=== PATIENT | male | born 1935 | race Hispanic/Latino ===

== ENCOUNTER 2018-08-22 14:07 | Inpatient (IN) | payer OTHER ==
[~2018-08-22] VITALS: Ht 170.2 cm; Wt 66.2 kg
[2018-08-22 15:09] LABS: BASOPHILS % (AUTO) 0.6 % (0.0-5.0); HEMATOCRIT 45.8 % (42-54); LYMPHOCYTES % (AUTO) 8.9 % (21.0-51.0); NEUTROPHILS % (AUTO) 83.5 % (40.0-77.0); NUCLEATED RED BLOOD CELLS 0.2 % (0.0-0.19); PLATELET COUNT (AUTO) 166 K/uL (130-400); RED BLOOD CELL COUNT(AUTO) 4.58 MIL/uL (4.50-6.20); RED CELL DISTRIBUTION WIDTH 16.4 % (11.0-15.5); WHITE BLOOD COUNT (AUTO) 7.2 K/uL (4.8-10.8)
[2018-08-22] MEDS ORDERED: ASPIRIN 325 MG TABLET ONE (15:09)
[2018-08-22 15:21] LABS: INR 1.16 (0.85-1.15); PARTIAL THROMBOPLASTIN TIME 27.1 SEC (26.3-35.5); PROTHROMBIN TIME 12.1 SEC (9.6-11.6)
[2018-08-22 15:22] LABS: CREATININE 1.8 mg/dL (0.5-1.5); POTASSIUM 4.7 mmol/L (3.5-5.1)
[2018-08-22 15:34] LABS: ALBUMIN 3.1 g/dL (3.5-5.0); BILIRUBIN,TOTAL 1.1 mg/dL (0.2-1.0); TOTAL PROTEIN, SERUM 6.3 g/dL (6.0-8.3)
[2018-08-22 15:37] LABS: B-TYPE NATRIURETIC PEPTIDE 2340 pg/mL (0-100)
[2018-08-22] MEDS ORDERED: FUROSEMIDE 10 MG/ML 4ML VIAL ONE (15:45)
[2018-08-22] MEDS: FUROSEMIDE 10 MG/ML 2ML VIAL IV SCH (18:45)
[2018-08-22] MEDS: CARVEDILOL 3.125 MG TABLET PO SCH (21:00)
[2018-08-22 22:51] LABS: TROPONIN I 0.21 ng/mL (0.00-0.06)
[2018-08-22] MEDS ORDERED: CARVEDILOL 3.125 MG TABLET PO ONE (23:04)
[2018-08-22 23:35] VITALS: BP 116/88
--- NOTE | 2018-08-22 23:35 | NUR ---
BURROUGHS CATH LEG BAG FROM E.D. REPLACED WITH REGULAR STERILE DRAINAGE BAG , ASEPTIC TECHNIQUE EMPLOYED, URINE FLOWING WITHOUT PROBLEM Addendum: 08/23/18 at 0336 by RICHAR PERDOMO RN RN Amended: Links added.
--- NOTE | 2018-08-23 00:01 | NUR ---
ADDENDUM TO PHYS ASSESSMENT MARKED EDEMA NOTED PENILE SHAFT TO PREPUCE. PER PT , DEVELOPED OVER A PERIOD OF 2-3 DAYS ,PROGRESSIVELY INCREASING ALONG WITH BILAT LE EDEMA Addendum: 08/23/18 at 0333 by RICHAR PERDOMO RN RN Amended: Links added.
[2018-08-23] MEDS ORDERED: ACETAMINOPHEN 325 MG TAB PO PRN ×2 (01:00)
[2018-08-23] MEDS ORDERED: POTASSIUM CHLORIDE 10% ELIXIR 20 MEQ/15 ML UDCUP PO PRN (01:00)
[2018-08-23] MEDS ORDERED: POTASSIUM CHLORIDE 10MEQ/100ML 100 ML IV PRN (01:00)
[2018-08-23] MEDS ORDERED: LIDOCAINE HCL-MPF 1% 2ML VIAL IVP PRN (01:00)
[2018-08-23] MEDS ORDERED: HYDRALAZINE HCL 20 MG/ML VIAL IV PRN (01:00)
[2018-08-23] MEDS ORDERED: ONDANSETRON HCL 4 MG/2 ML VIAL IVP PRN (01:00)
[2018-08-23] MEDS ORDERED: POTASSIUM CHLORIDE 20 MEQ ERTAB PO PRN (01:00)
[2018-08-23 03:59] VITALS: BP 116/84
[2018-08-23 05:51] LABS: BASOPHILS % (AUTO) 0.3 % (0.0-5.0); EOSINOPHILS % (AUTO) 1.4 % (0.0-8.0); HEMATOCRIT 44.6 % (42-54); LYMPHOCYTES % (AUTO) 7.1 % (21.0-51.0); MEAN CORPUSCULAR HEMOGLOBIN 33.5 pg (27.0-33.0); MEAN CORPUSCULAR HGB CONC 33.3 g/dL (32.0-36.0); MEAN CORPUSCULAR VOLUME 100.4 fL (79-99); MONOCYTES % (AUTO) 6.6 % (3.0-13.0); NEUTROPHILS % (AUTO) 84.6 % (40.0-77.0); NUCLEATED RED BLOOD CELLS 0.1 % (0.0-0.19); PLATELET COUNT (AUTO) 139 K/uL (130-400); RED BLOOD CELL COUNT(AUTO) 4.44 MIL/uL (4.50-6.20); RED CELL DISTRIBUTION WIDTH 16.5 % (11.0-15.5); WHITE BLOOD COUNT (AUTO) 5.9 K/uL (4.8-10.8)
[2018-08-23] MEDS ORDERED: ATOR20TA65 PO (06:03)
[2018-08-23] MEDS ORDERED: IRON1CAP30 PO (06:03)
[2018-08-23] MEDS ORDERED: CYAN10009 PO (06:03)
[2018-08-23] MEDS ORDERED: INSU3INS3 SQ (06:03)
[2018-08-23] MEDS ORDERED: METF-444 PO (06:03)
[2018-08-23] MEDS ORDERED: LISI10TA7 PO (06:03)
[2018-08-23] MEDS: FUROSEMIDE 10 MG/ML 2ML VIAL IV SCH ×2 (06:06→22:40)
[2018-08-23 06:14] LABS: CREATININE 1.7 mg/dL (0.5-1.5); POTASSIUM 4.5 mmol/L (3.5-5.1); TROPONIN I 0.18 ng/mL (0.00-0.06)
[2018-08-23 07:00] VITALS: BP 125/89
[2018-08-23] MEDS: INSULIN HUMULIN R 100 UNIT/ML 3ML SQ SCH ×4 (07:37→20:33)
--- NOTE | 2018-08-23 08:15 | NUR ---
patient is legal blind and hard of hearing Addendum: 08/23/18 at 1214 by ANDERSON ROLAND RN RN Amended: Links added.
[2018-08-23] MEDS: PANTOPRAZOLE SODIUM 40 MG TABLET.DR PO SCH (09:57)
[2018-08-23] MEDS: ASPIRIN 81MG TAB.CHEW PO SCH (09:57)
[2018-08-23] MEDS: CARVEDILOL 3.125 MG TABLET PO SCH ×2 (09:57→22:39)
[2018-08-23] MEDS: ENOXAPARIN SODIUM 40 MG/0.4 ML SYRINGE SQ SCH (09:59)
[2018-08-23 11:00] VITALS: BP 129/75
--- NOTE | 2018-08-23 11:21 | NUR ---
DCP CM met with pt discussed dc plans. Pt is independent prior to admission, lives at home with spouse. Pt has a walker and wheelchair. Denies any other equipments/services. Pt feels safe to go back home, spouse and family able to assist with transportation and needs. DC plan to home once stable. CM to cont to follow up. Addendum: 08/23/18 at 1122 by JE SKINNER LVN CM Amended: Links added.
--- NOTE | 2018-08-23 15:51 | NUR ---
Nutrition Intervention: Nutrition consult for Cardiac Low Sodium diet education. Pt. admitted with Dx of CHF Exacerbation, Pleural Effusion. Pt. on 75gm CCD Heart Healthy diet, 1200ml Fluid Rest. with fair p.o. intake, as per spouse. Spouse states pt. with some chewing difficulty and needs soft chopped foods. Labs reviewed(Alb 3.1, BUN 41, Creat 1.7, GFR 41, BG 204). LBM: 08/22/18. SR-14, loose. BMI: 23.3, normal. Pt's spouse educated on Diabetic Low Sodium Heart Healthy diet and provided with education material. Pt's spouse verbalized understanding. Recommendations: 1) Rec. 75gm CCD Heart Healthy [facility] Soft Finely Chopped diet. 2) Diabetic Low Sodium Heart Healthy diet education given to pt's spouse. 3) Continue to monitor pt's nutritional status. 4) Consult RD as nutrition concerns arise. Addendum: 08/23/18 at [address] Amended: Links added.
[2018-08-23 16:00] VITALS: BP 129/75
--- NOTE | 2018-08-23 16:50 | NUR ---
DR AUSTIN ROUNDED ON PATIENT NEW ORDERS FOR PT/OT EVAL BMP IN AM LASIX 40 IV Q8 HOURS
[2018-08-23 19:20] VITALS: BP 93/66
[2018-08-23 23:01] VITALS: BP 114/78
[2018-08-24 03:57] VITALS: BP 117/80
[2018-08-24 05:36] LABS: CREATININE 1.8 mg/dL (0.5-1.5); POTASSIUM 4.3 mmol/L (3.5-5.1)
[2018-08-24] MEDS: INSULIN HUMULIN R 100 UNIT/ML 3ML SQ SCH ×4 (05:43→20:40)
[2018-08-24] MEDS: FUROSEMIDE 10 MG/ML 2ML VIAL IV SCH ×2 (06:43→14:24)
[2018-08-24 08:00] VITALS: BP 114/74
[2018-08-24] MEDS: ASPIRIN 81MG TAB.CHEW PO SCH (09:54)
[2018-08-24] MEDS: CARVEDILOL 3.125 MG TABLET PO SCH ×2 (09:54→20:34)
[2018-08-24] MEDS: PANTOPRAZOLE SODIUM 40 MG TABLET.DR PO SCH (09:54)
[2018-08-24] MEDS: ENOXAPARIN SODIUM 40 MG/0.4 ML SYRINGE SQ SCH (09:59)
[2018-08-24] MEDS ORDERED: LACTULOSE 20 GM/30 ML UDCUP PO PRN (11:30)
[2018-08-24 12:00] VITALS: BP 120/73
[2018-08-24 16:00] VITALS: BP 114/65
--- NOTE | 2018-08-24 16:51 | NUR ---
CM Note: HNR pending ins auth and acceptance CM met with pt and spouse, discussed rec for short term placement, spouse in agreement, ABRIL signed for HNR. Faxed order, clinicals, and pasrr. Spoke to Pretty w/HNR, will come eval pt. Pt pending ins auth and acceptance. EMS filled out and flagged, pending to be faxed w/current date, primary nurse pending to call [facility] once pt ready to DC. Primary nurse aware. CM to cont to follow up.
[2018-08-24] MEDS: FUROSEMIDE 40 MG TABLET PO SCH (18:18)
[2018-08-24 19:45] VITALS: BP 102/73
[2018-08-24] MEDS: SPIRONOLACTONE 25 MG TAB PO SCH (20:34)
[2018-08-24 23:50] VITALS: BP 121/71
[2018-08-25] MEDS: FUROSEMIDE 40 MG TABLET PO SCH ×2 (02:35→10:18)
[2018-08-25 04:13] VITALS: BP 134/79
[2018-08-25 04:52] LABS: CREATININE 1.9 mg/dL (0.5-1.5); POTASSIUM 3.5 mmol/L (3.5-5.1)
[2018-08-25] MEDS: INSULIN HUMULIN R 100 UNIT/ML 3ML SQ SCH ×3 (05:12→16:30)
[2018-08-25 08:12] VITALS: BP 117/78
[2018-08-25] MEDS: ASPIRIN 81MG TAB.CHEW PO SCH (09:36)
[2018-08-25] MEDS: SPIRONOLACTONE 25 MG TAB PO SCH (09:36)
[2018-08-25] MEDS: PANTOPRAZOLE SODIUM 40 MG TABLET.DR PO SCH (09:37)
[2018-08-25] MEDS: CARVEDILOL 3.125 MG TABLET PO SCH (09:37)
[2018-08-25] MEDS: ENOXAPARIN SODIUM 40 MG/0.4 ML SYRINGE SQ SCH (09:38)
[2018-08-25 11:00] VITALS: BP 128/81
--- NOTE | 2018-08-25 13:00 | NUR ---
CM Note: HNR ins auth and acceptance Spoke to [employer], pt has ins auth and acceptance, EMS arranged and faxed, pending primary nurse to call [facility] once pt ready to DC. Primary nurse aware. CM to cont to follow up.
[2018-08-25 16:00] VITALS: BP 132/89
--- NOTE | 2018-08-25 19:40 | NUR ---
DISCHARGE PATIENT GIVEN DISCHARGE INSTRUCTIONS VIA TEACH BACK. 20G PIV TO ANTONIO DISCONTINUED, TIP INTACT. 14FR BURROUGHS CATHETER IN PLACE DUE TO DIURETICS AND HX OF BLADDER CA. REPORT GIVE TO ROSEMARIE ZHONG AT [facility]. PATIENT TO BE TRANSFERRED VIA EMS. REPORT GIVEN TO [place] ON COMING SHIFT.
[2018-08-25 20:00] VITALS: BP 134/96
--- NOTE | 2018-08-25 22:38 | NUR ---
Discharge note: Per Day shift nurse ( ROSEMARIE Adamson) report , pt. will be transferred to [facility] via EMS. According, Nurse to Nurse report was done and it was Nurse Blank at [facility] who got the report. EMS was called also. 2238: EMS arrived and reports given. Discharge packet was given as well. Patient discharged via stretcher with no apparent distress / discomfort. IV terminated by previous shift. Telemetry removed.
== END 2018-08-25 22:38 | DRG 291 ==
LOC: EDH 14:07 → EDHIP 17:35 → OBSVTOIN 17:35 → INTOOBSV 17:35 → 3BH 22:27
PROVIDERS: ADMIT Internal Medicine; ATTEND Internal Medicine
DX: I13.0 Hypertensive heart and chronic kidney disease with heart failure and stage 1 through stage 4 chronic kidney disease, or unspecified chronic kidney disease (principal); I50.43 Acute on chronic combined systolic (congestive) and diastolic (congestive) heart failure; N18.3 Chronic kidney disease, stage 3 (moderate); E11.22 Type 2 diabetes mellitus with diabetic chronic kidney disease; E11.21 Type 2 diabetes mellitus with diabetic nephropathy; I34.0 Nonrheumatic mitral (valve) insufficiency; R79.1 Abnormal coagulation profile; R74.0 Nonspecific elevation of levels of transaminase and lactic acid dehydrogenase [LDH]; F17.200 Nicotine dependence, unspecified, uncomplicated; J44.9 Chronic obstructive pulmonary disease, unspecified; Z79.899 Other long term (current) drug therapy; Z71.6 Tobacco abuse counseling; Z79.4 Long term (current) use of insulin; Z79.84 Long term (current) use of oral hypoglycemic drugs
CPT/HCPCS: 36415; 71045; 76705; 78582; 80048; 80053; 82550; 82948; 83874; 83880; 84484; 85025; 85378; 85610; 85730; 93005; 93306; 93970; 97039; A9540; A9558; G0378; J1650; J1815; J1940

== ENCOUNTER → 2018-09-29 | Outpatient (CLI) | payer OTHER ==
[~2018-09-29] MED LIST: ATOR20TA65 PO; CYAN10009 PO; INSU3INS3 SQ; IRON1CAP30 PO; LISI10TA7 PO; METF-444 PO
== END | disposition home or self-care (01) ==
LOC: RAH 10:04
PROVIDERS: ATTEND Internal Medicine Cardiovascular Disease
DX: I50.23 Acute on chronic systolic (congestive) heart failure (principal)
CPT/HCPCS: 71046

== ENCOUNTER → 2019-06-07 | Outpatient (CLI) | payer OTHER ==
[~2019-06-07] MED LIST changes: +CYAN-52 PO; -CYAN10009 PO
== END | disposition home or self-care (01) ==
LOC: SHCH 14:52
PROVIDERS: ATTEND Internal Medicine Cardiovascular Disease
DX: I50.33 Acute on chronic diastolic (congestive) heart failure (principal)
CPT/HCPCS: 93306; 93356

== ENCOUNTER → 2020-05-08 | Outpatient (CLI) | payer OTHER ==
[~2020-05-08] MED LIST changes: +LISI10TA24 PO; -LISI10TA7 PO
== END | disposition home or self-care (01) ==
LOC: SHCH 08:37
PROVIDERS: ATTEND Internal Medicine Cardiovascular Disease
DX: M79.604 Pain in right leg (principal); M79.605 Pain in left leg
CPT/HCPCS: 93922

== ENCOUNTER → 2020-09-19 | Outpatient (CLI) | payer OTHER | END | disposition home or self-care (01) | LOC: RAH 13:30 | PROVIDERS: ATTEND Internal Medicine Cardiovascular Disease | DX: I50.82 Biventricular heart failure (principal); I50.42 Chronic combined systolic (congestive) and diastolic (congestive) heart failure; I25.10 Atherosclerotic heart disease of native coronary artery without angina pectoris; I51.7 Cardiomegaly | CPT/HCPCS: 71250 ==

== ENCOUNTER → 2021-03-14 | Outpatient (CLI) | payer OTHER | END | disposition home or self-care (01) | LOC: SHCH 08:52 | PROVIDERS: ATTEND Internal Medicine Cardiovascular Disease | DX: I08.0 Rheumatic disorders of both mitral and aortic valves (principal); E78.5 Hyperlipidemia, unspecified; E11.9 Type 2 diabetes mellitus without complications; I27.20 Pulmonary hypertension, unspecified | CPT/HCPCS: 93306; 93356 ==